=== PATIENT | male | born 1965 | race Caucasian/White ===

== ENCOUNTER → 2023-02-14 15:52 | Outpatient (BNVA) | payer OTHER, SELFPAY | PROVIDERS: PCP Internal Medicine; Visit Provider Physician Assistant Surgical ==

== ENCOUNTER 2023-03-15 13:41 | Outpatient (AMB) | payer OTHER, SELFPAY ==
--- NOTE | 2023-03-15 13:42 | A.OFFVIS_ITS ---
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 *Will bring Packet* Tree Surgeon Helper Required: Yes Tree Surgeon Helper Language: Italian Tree Surgeon Helper Name: [id number] Allergies No Known Allergies Allergy (Verified 03/15/23 14:12) Medication List - Last Reconciled 03/15/23 by JOANNE Talley atorvastatin 40 mg PO DAILY cholecalciferol (vitamin D3) mcg PO furosemide 20 mg PO DAILY glimepiride 4 mg PO BID insulin glargine 50 units subcut QPM magnesium 250 mg PO DAILY metformin 1,000 mg PO BID omeprazole 40 mg PO QAM pen needle, diabetic As directed ropinirole 0.5 mg PO QPM HPI HPI Comments History of Present Illness Details Pt [place] [facility] [place] [facility] [place]. He heard about our program from his PCP. His goal is to lose weight and achieve a healthy lifestyle as well as to improve, if not resolve, obesity related medical conditions, including dm, hld. He reports first being concerned about his weight 8-10 years ago, highest weight to date was 312. Current weight is 270.8 pounds with a BMI of 39.4. He has tried multiple methods of weight loss including fad diets without permanent results. He lives with his . 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 He wakes at:?530 am, and goes to bed at?930 pm. Dinner is at 5 pm. Breakfast: sandwich AM snack: fruit Lunch: sandwich PM snack: skip Dinner: meat, salad After dinner: bread Other snacks: ice cream, cake Liquids: 32 oz water, gatorade zero 2 bottles, no juice Alcohol/marijuana/tobacco intake: rare etoh, no cannabis, 1 pack per day x 40 years Exercise: none, treadmill in his home, GERD score: 22 LEV score: 0 ESS score: 22 QOL score: 78 [facility] Surgical History (Updated 03/15/23 @ 14:19 by Nissa Fair CMA) Hx of colonoscopy Review of Systems Const All systems reviewed & are unremarkable except as noted in HPI and below Physical Exam Vital Signs: Last Vital Signs Temp 97.2 F 03/15/23 13:57 Pulse 88 03/15/23 13:57 BP 136/72 03/15/23 13:57 Pulse Ox 92 03/15/23 13:57 Oxygen Delivery Method Room Air 03/15/23 13:57 BMI result Body Mass Index 39.4 Const General: cooperative, healthy appearing and no acute distress Orientation/consciousness: patient oriented x3 HEENT Head: Yes normal to inspection Ears: hearing grossly normal bilaterally General nose exam: Normal external nose present Face and sinus: Yes normal facial exam Eyes General: appearance normal, both eyes and all related structures Resp Effort & Inspection: normal respiratory effort Auscultation: clear to auscultation bilaterally Cardio Rate: regular rate Rhythm: regular rhythm Heart sounds: S1 normal heart sound present and S2 normal heart sound present GI Inspection: Yes normal to inspection, No distended and Yes obesity Palpation (GI): Soft to palpation, nontender and no guarding Auscultation: normal bowel sounds Skin General skin exam: no rashes or lesions noted Neuro General: patient oriented x3 Extrem General: Yes edema (1+ BLE edema) Psych Appearance: grossly normal Mental Status: mental status grossly normal Speech and movement: Normal speech and movement present Affect: normal affect Attitude: cooperative Assessment & Plan Assessment & Plan (1) Obesity (BMI 30-39.9): Code(s): E66.9 - Obesity, unspecified Plan: This is a?57 yo male who will start our SWL program to prepare for bariatric surgery.? Blood work, h pylori , CXR, ECG, Abd US and UGI have been ordered. He is being scheduled for RD and BH initial consultations. He will start SWL classes and watch the first three videos before his next appointment. ? Adequate sleep of 7-8 hours per night discussed, awakening at 530 am and going to bed at 930 pm ? Purchase body composition analyzer scale (Miriam white or Seferino recommended) and check weight weekly. The best time to do this is first thing in the morning after going to the bathroom. 1. Nutritional counseling: Be sure to careful read the number of scoops per shake Start with 3 Premier Protein shakes ([employer], [employer], [facility]), (1 scoop in 8 oz low fat unsweetened almond milk or water each) First shake at 630am-830am, Second shake at 1030am-1230pm 1 protein bar (Fit Crunch bars at [employer], [facility], or [employer]) at 2pm-4pm. Dinner at 5pm (10 forks of protein and 10 forks of salad/vegetables). Meal to include lean meat (beef, fish, pork, turkey, chicken), cooked vegetables or a salad with olive oil and/or fruits (berries, pears, apples, kiwi). Avoid salt, breads, potatoes, rice, pasta, desserts. Another shake with 1 scoop in 8 oz unsweetened almond milk at 7pm-9pm. Try to drink 64 oz of water daily and avoid soda and juices. ?2. Each shake would be drunk slowly, like coffee in a period of 2 hours. ?3. Cut each bar in 4 pieces and eat each piece in 30 min ?to make each bar last 2 hours. ?4. I emphasized the importance of measuring accurately the food portion and measure it carefully when serving the food on the plate ?5. The meal portions include 10 full-size forks of meat and 10 full-size forks of salad. You always eat the meat portion but you can replace up to half of the forks of salad/vegetables with rice, potatoes or pasta, or a fruit ?if you like. The less you do it the better weight loss will be. ?6. One full-size fork is what can be scooped on the fork without falling aside and not what can be bit with the fork. Use regular forks like those you find in a typical restaurant. ?7.? Please send me weight measurements as soon as possible and then once a week. Always include your diet and exercise plan. Alternatively come weekly at the office for weight checks and send me the measurements. ?8. Exercise counseling: Begin by watching a stretching for beginners video. Start slowly and begin to stretch your muscles. You should do this before and after each exercise session to prevent injury. You have a treadmill at your home but I have included other options in case you buy another piece of equipment. Start elliptical with a resistance of 2. Increase resistance by 1 every 3 min to your most comfortable resistance with a max resistance of 8. Reduce the resistance by 1 every 3 minutes back down to 2 and repeat cycles for 300 calories. Alternatively, start treadmill with a speed of 3.0 and incline of 0, increasing incline by 1 every 3 minutes to the highest comfortable level (max 6 for now) then decrease in the same fashion. Repeat process to a goal of 300 calories. Goal of 2000 calories burned or more weekly. You may also consider use of the stationary bike. The easiest would be to chose the fat-burn or i nterval training program on the machine and do this until you reach the 300 calorie goal. Alternatively, you can manually adjust the resistance in a similar fashion as mentioned above, (resistance of 2-8 with a goal speed of 12 mph). Tracking calories is essential. 9. Alternatively start walking outside daily, tracking calories with a goal of 300 calories per day, daily. You can download the joselito Monitor My Meds which can track your time, distance and calories while walking outside. You press start in the joselito when you start and then stop when you are finished. 10.? It is important to communicate by text with me weekly. 11. Please get labs, EKG and chest X-Ray within 1 week. 12. Discussed and answered all questions regarding?obtained consent to participate in the [place] [facility]?Registry. 13. Please follow the diet plan exactly, without any change. If you do not like something about the plan or you feel hungry, you need to communicate with me so I can help you revise the plan. You should not change the plan yourself. Text me at [phone] 14. Goal is to lose at least 12 pounds in the first month 15. Goal is to lose 10% of your weight before surgery, which is about 27 lbs. Ultimate weight goal: 243 lbs before surgery 16. Stop smoking immediately 17. If you want to do another overnight sleep study, let me know 18. Be sure to check your blood sugars twice per day when you start the meal plan Patient is morbidly obese and is not considered stable at this time.?I spent a total of 70 minutes reviewing/updating records, examining the patient and counseling the patient on weight management as detailed above. (2) WEST (obstructive sleep apnea): Code(s): G47.33 - Obstructive sleep apnea (adult) (pediatric) Plan: States underwent a sleep study and does have sleep apnea but did not tolerate CPAP and hasn't followed up. ESS 22. Discussed risks of untreated sleep apnea including but not limited to daytime fatigue, heart attack, stroke. Offered re- testing and pt declines at this time Orders: Orders Vitamin B12 and Folate Today E11.9 - Type 2 diabetes mellitus without co mplications, E66.9 - Obesity, unspecified, E78.00 - Pure hypercholesterolemia, unspecified Comprehensive Met. Panel Today E11.9 - Type 2 diabetes mellitus without complications, E66.9 - Obesity, unspecified, E78.00 - Pure hypercholesterolemia, unspecified C Reactive Protein Today E11.9 - Type 2 diabetes mellitus without complications, E66.9 - Obesity, unspecified, E78.00 - Pure hypercholesterolemia, unspecified Ferritin Today E11.9 - Type 2 diabetes mellitus without complications, E66.9 - Obesity, unspecified, E78.00 - Pure hypercholesterolemia, unspecified Hemoglobin A1c Today E11.9 - Type 2 diabetes mellitus without complications, E66.9 - Obesity, unspecified, E78.00 - Pure hypercholesterolemia, unspecified Insulin Today E11.9 - Type 2 diabetes mellitus without complications, E66.9 - Obesity, unspecified, E78.00 - Pure hypercholesterolemia, unspecified IRON PROFILE Today E11.9 - Type 2 diabetes mellitus without complications, E66.9 - Obesity, unspecified, E78.00 - Pure hypercholesterolemia, unspecified Lipid Panel Today E11.9 - Type 2 diabetes mellitus without complications, E66.9 - Obesity, unspecified, E78.00 - Pure hypercholesterolemia, unspecified PTHI Today E11.9 - Type 2 diabetes mellitus without complications, E66.9 - Obesity, unspecified, E78.00 - Pure hypercholesterolemia, unspecified TSH reflex Free T4 Today E11.9 - Type 2 diabetes mellitus without complications, E66.9 - Obesity, unspecified, E78.00 - Pure hypercholesterolemia, unspecified Vitamin A Today E11.9 - Type 2 diabetes mellitus without complications, E66.9 - Obesity, unspecified, E78.00 - Pure hypercholesterolemia, unspecified Vitamin B1 Today E11.9 - Type 2 diabetes mellitus without complications, E66.9 - Obesity, unspecified, E78.00 - Pure hypercholesterolemia, unspecified Vitamin D 25-OH Total Today E11.9 - Type 2 diabetes mellitus without complications, E66.9 - Obesity, unspecified, E78.00 - Pure hypercholesterolemia, unspecified Zinc Today E11.9 - Type 2 diabetes mellitus without complications, E66.9 - Obesity, unspecified, E78.00 - Pure hypercholesterolemia, unspecified ECG 12 lead EKG Today E11.9 - Type 2 diabetes mellitus without complications, E66.9 - Obesity, unspecified, E78.00 - Pure hypercholesterolemia, unspecified FL upper GI w air Today E11.9 - Type 2 diabetes mellitus without complications, E66.9 - Obesity, unspecified, E78.00 - Pure hypercholesterolemia, unspecified Complete Blood Count Auto Diff Today E11.9 - Type 2 diabetes mellitus without complications, E66.9 - Obesity, unspecified, E78.00 - Pure hypercholesterolemia, unspecified H Pylori Breath Test Today E11.9 - Type 2 diabetes mellitus without complications, E66.9 - Obesity, unspecified, E78.00 - Pure hypercholesterolemia, unspecified US abdomen comp w elastography Today E11.9 - Type 2 diabetes mellitus without complications, E66.9 - Obesity, unspecified, E78.00 - Pure hypercholesterolemia, unspecified XR chest 2V Today E11.9 - Type 2 diabetes mellitus without complications, E66.9 - Obesity, unspecified, E78.00 - Pure hypercholesterolemia, unspecified Referrals Behavioral Health Referral E11.9 - Type 2 diabetes mellitus without complications, E66.9 - Obesity, unspecified, E78.00 - Pure hypercholesterolemia, unspecified Nutrition/Dietitian Referral E11.9 - Type 2 diabetes mellitus without complications, E66.9 - Obesity, unspecified, E78.00 - Pure hypercholesterolemia, unspecified Coding Level of Care Code New Pt Level 5 (58121) Diagnoses Obesity (BMI 30-39.9) E66.9 WEST (obstructive sleep apnea) G47.33 Time Spent (min) 70
[2023-03-15 13:57] VITALS: BP 136/72; PULSE 88; TEMP 36.2; O2SAT 92; BMI 39.4
== END 2023-03-15 15:18 | disposition home or self-care (01) ==
PROVIDERS: PCP Internal Medicine; Visit Provider Physician Assistant Surgical
DX: E66.9 Obesity, unspecified (principal); Z68.39 Body mass index [BMI] 39.0-39.9, adult; G47.33 Obstructive sleep apnea (adult) (pediatric)
CPT/HCPCS: 99205

== ENCOUNTER → 2023-03-15 13:41 | Outpatient (BNVA) | payer OTHER, SELFPAY | PROVIDERS: PCP Internal Medicine; Visit Provider Physician Assistant Surgical ==

== ENCOUNTER 2023-04-27 15:53 | Outpatient (AMB) | payer OTHER, SELFPAY ==
--- NOTE | 2023-04-27 15:18 | A.OFFWM_ITS ---
Intake Intake Visit Reasons: VIDEO Intake Allergies No Known Allergies Allergy (Verified 03/15/23 14:12) PFS Surgical History (Updated 03/15/23 @ 14:19 by Nissa Fair CMA) Hx of colonoscopy Behavioral Health Assessment Weight Management Therapy Therapy Notes Details Pt reported that he is looking to have weight loss surgery to help improve his health and quality of life. He reported that he struggles with pain at work due to his weight. 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 Patient denied any mental health history or problems with drugs or alcohol. He is a cigarette smoker. Presenting Concerns Referral Source provider Reason for referral weight loss surgery evaluation Precipitating Event obesity Living Situation0 Current Living Situation Own At risk of losing current housing? No Satisfied with current living situation? Yes Comments Pt lives with his . he has two grown children. One who lives next [facility] and his son who lives in [place]. Food/Weight/Diet Expectations of change weight loss History/Relationship with food Pt stated that he likes all meat, peirogi, potatoes, rice, vegetables, pasta History/Relationship with weight Patient stated that he was thin when he was young. he has gained weight throughout the years especially when he tried to stopped smoking he went up to 312lbs. History/Relationship with dieting self diets, low carb Social History Family history and relationship Pt is and has two adult children. He was born and raised in [place] until he came here 35 years ago. He recently lost his father and before that his mother. He reported poor sleep since then. Parental/Familial intelligence clerk obligations none Developmental history and status no issues Social support family Cultural/Ethnic information Afghan [place] Legal Involvement and History Current or historical involvement with the legal system? no legal Education Highest grade completed high school Currently enrolled in educational program? No Interested in further educational program? No Employment Employment Status [employer] Wants help to find employment? No Financial Situation Describe current financial situation Occasional struggle Financial assistance? None Service Service? No Mental Health and Addiction Treatment Current/Past substance abuse? No Current/Past addictive behavior concerns? No Medical and Physical Health Summary Physical exam in the last year? Yes Pain Screening Current pain? No Medications Is the patient compliant with medications? Yes Does the patient have Vyas Guardian in place? Not applicable Does the patient use complimentary health approaches? No Assessment & Plan Assessment & Plan (1) Adjustment disorder, unspecified: Code(s): F43.20 - Adjustment disorder, unspecified (2) Obesity (BMI 30-39.9): Code(s): E66.9 - Obesity, unspecified (3) Diabetes: Code(s): E11.9 - Type 2 diabetes mellitus without complications Plan Patient is not fluent in Ghanaian however was able to understand most of this evaluation. He admitted to having some stress from recent loss of his parents who he was close to. Patient is worried about trying to quit smoking and doing the diet plan. He does not appear to have any serious mental health issues nor does he report any. He is cleared for surgery when ready and offered additional support services if needed. Telehealth Telehealth Location of provider rendering services: other Location of patient: address on file Patient Identification confirmed using: Name, : Yes Telehealth method: video Patient verbally consented to treatment: Yes Patient verbally consented to billing insurance company: Yes Patient informed of any privacy concerns related to visit: Yes Minutes spent on Phone/Video with Pt.: 45 Coding Level of Care Code Tele Psy Diag Janet ([id number]) Diagnoses Adjustment disorder, unspecified F43.20 Obesity (BMI 30-39.9) E66.9 Diabetes E11.9 Time Spent (min) 45
== END 2023-04-27 15:57 | disposition home or self-care (01) ==
LOC: HO.HBST 15:53
PROVIDERS: PCP Internal Medicine; Referring Provider Physician Assistant Surgical; Visit Provider Counselor Mental Health
DX: F43.20 Adjustment disorder, unspecified (principal); E66.9 Obesity, unspecified; Z68.39 Body mass index [BMI] 39.0-39.9, adult; E11.9 Type 2 diabetes mellitus without complications
CPT/HCPCS: 90791

== ENCOUNTER → 2023-04-27 15:53 | Outpatient (BNVA) | payer OTHER, SELFPAY | PROVIDERS: PCP Internal Medicine; Referring Provider Physician Assistant Surgical; Visit Provider Counselor Mental Health ==

== ENCOUNTER → 2023-05-04 15:50 | Outpatient (BNVA) | payer OTHER, SELFPAY | PROVIDERS: PCP Internal Medicine; Referring Provider Physician Assistant Surgical; Visit Provider Dietitian, Registered | DX: E66.9 Obesity, unspecified (principal); Z71.3 Dietary counseling and surveillance | CPT/HCPCS: 97802 ==

== ENCOUNTER 2023-05-09 14:51 | Outpatient (REF) | payer OTHER, SELFPAY ==
[2023-05-10 17:14] LABS: H Pylori Breath Test Positive (Negative)
== END 2023-05-09 14:52 | disposition home or self-care (01) ==
LOC: HO.LNP 14:51
PROVIDERS: PCP Internal Medicine; Visit Provider Physician Assistant Surgical
DX: E66.9 Obesity, unspecified (principal); E11.9 Type 2 diabetes mellitus without complications; E78.00 Pure hypercholesterolemia, unspecified
CPT/HCPCS: 83013; 99211

== ENCOUNTER 2023-05-09 14:51 | Outpatient (AMB) | payer OTHER, SELFPAY ==
--- NOTE | 2023-05-09 15:00 | MHC.OFFVISWM ---
Intake VS Expanded 05/09/23 15:17 BP 142/65 H Blood Pressure Location Rt brachial Blood Pressure Position Sitting Pulse 80 Pulse Source Pulse Oximeter Temp 97.7 F Temperature Source Temporal Artery Scan Pulse Oximetry 96 Oxygen Delivery Method Room Air Height 5 ft 9.5 in Weight 252 lb 6.4 oz BMI 36.7 Body Fat % 33.4 Body Fat Mass 84.2 Fat Free Mass 168.0 Visceral Fat Rating 20.0 Body Water % 47.9 Body Water Mass 120.8 Muscle Mass/Score 159.8 Basal Metabolic Rate/Score 2,286 Intake Visit Reasons: (OV) F/U SWL Quad Stayer Required: No Allergies No Known Allergies Allergy (Verified 05/09/23 15:07) Medication List - Last Reconciled 05/09/23 by JOANNE Talley atorvastatin 40 mg PO DAILY cholecalciferol (vitamin D3) mcg PO glimepiride 4 mg PO BID insulin glargine 40 units subcut QPM magnesium 250 mg PO DAILY metformin 1,000 mg PO BID omeprazole 40 mg PO QAM pen needle, diabetic As directed ropinirole 0.5 mg PO QPM HPI HPI Comments History of Present Illness Details The patient is a pleasant 57 year old male who returns to the clinic for pre-operative surgical weight loss management. They were last seen in the office on 03/15/2023, recorded weight at that time was 270.8 pounds, with a BMI of 39.4. Today's weight is 252.4 pounds and BMI is 36.7. There has been a weight loss of 18.4 pounds since initiating the surgical weight loss program on 03/15/23 with a total body weight loss of 6.7 %. Pre op work up completed as follows: SWL classes:? 0/8 appts: cleared 04/27/23 ? ? RD appts: needs f/u as language is barrier to computer based classes, will be given written handout [place]: [place] [facility] [place] 10.1 H. pylori: 05/09/23 CXR: not yet done EKG: not yet done ABD U/S: 05/24/23 UGI: 05/24/23 The patient reports he has had 1-2 episodes of dizziness with change in position but none in the last 3 weeks. . He states BS have been 110-170 and sometimes he does not take his insulin at night. The patient does have a body composition scale. They also have been communicating weekly. Current meal plan includes: 3 Premier Protein shakes ([employer], [employer], [facility]), (1 scoop in 8 oz low fat unsweetened almond milk or water each) First shake at 630am-830am, Second shake at 1030am-1230pm 1 protein bar (Fit Crunch bars at [employer], [facility], or [employer]) at 2pm-4pm. Dinner at 5pm (10 forks of protein and 10 forks of salad/vegetables). Another shake with 1 scoop in 8 oz unsweetened almond milk at 7pm-9pm. Drinking 16 oz water and 40 oz of poweraid zero Current exercise plan includes: nothing, has treadmill at home PFSH Surgical History Hx of colonoscopy Social History Alcohol intake: never Patient Tobacco Use Status: Current someday Tobacco user Tobacco use type: Cigarette Review of Systems Const All systems reviewed & are unremarkable except as noted in HPI and below Physical Exam Const General: healthy appearing and no acute distress Resp Effort & Inspection: normal respiratory effort Auscultation: clear to auscultation bilaterally Cardio Rate: regular rate Rhythm: regular rhythm GI Auscultation: normal bowel sounds Extrem General: Yes normal to inspection Assessment & Plan Assessment & Plan (1) Obesity (BMI 30-39.9): Code(s): E66.9 - Obesity, unspecified Plan: 2 Premier Protein shakes ([employer], [employer], [facility]), (1 scoop in 8 oz low fat unsweetened almond milk or water each) First shake at 630am-830am, Second shake at 1030am-1230pm 1 protein bar (Fit Crunch bars at [employer], [facility], or [employer]) at 2pm-4pm. Dinner at 5pm (10 forks of protein and 10 forks of salad/vegetables). Follow-up blood sugars in text me with the data. Likely will need decrease in medications. Coding Level of Care Code Est Pt Level 3 (19186) Diagnoses Obesity (BMI 30-39.9) E66.9
[2023-05-09 15:17] VITALS: BP 142/65; PULSE 80; TEMP 36.5; O2SAT 96; BMI 36.7
== END 2023-05-09 16:15 | disposition home or self-care (01) ==
PROVIDERS: PCP Internal Medicine; Visit Provider Physician Assistant Surgical
DX: E66.9 Obesity, unspecified (principal); Z68.36 Body mass index [BMI] 36.0-36.9, adult
CPT/HCPCS: 99213

== ENCOUNTER 2023-05-24 08:17 | Outpatient (REF) | payer OTHER, SELFPAY ==
--- NOTE | ~2023-05-24 | XR_ITS ---
EXAMINATION: XR CHEST CLINICAL INFORMATION: Obesity COMPARISON: None available. TECHNIQUE: 2 views of the chest were obtained. FINDINGS: No significant abnormality is noted involving the heart, lungs, mediastinum, bony thorax or soft tissues. XR/XR chest 2V IMPRESSION: Unremarkable examination.
--- NOTE | ~2023-05-24 | US_ITS ---
EXAMINATION: US COMPLETE ABDOMEN WITH LIVER ELASTOGRAPHY CLINICAL INFORMATION: Obesity COMPARISON: None available. TECHNIQUE: Real-time imaging of the abdominal viscera. Noninvasive ultrasound liver fibrosis assessment is performed using Bharathi ElastPQ point quantification shear wave elastography (2D-SWE) with a C5-2 MHz transducer. Multiple elastography samples are obtained. FINDINGS: PANCREAS: Not well visualized overlying bowel gas. ABDOMINAL AORTA: The middle and distal aortic segments are normal in caliber. Proximal abdominal aorta is not well visualized due to bowel gas. There is atherosclerotic disease. INFERIOR VENA CAVA: Visualized portions are normal. LIVER: Liver echotexture is increased. The liver is enlarged. The liver is normal in contour. No focal lesion or intrahepatic biliary duct dilatation. The right lobe measures 21 cm in length. The left lobe measures 8 cm in length. Portal flow is normal/hepatopedal Shear wave liver elastography median stiffness is 1.4 m/s (reference: normal median stiffness is 1.3 m/s or less). IQR/median stiffness to assess sampling precision is 0.2 (reference: good quality data set is IQR/median stiffness of 0.15 or less). GALLBLADDER: Normal. The gallbladder is physiologically distended without evidence of stones, sludge, polyps, wall thickening or pericholecystic fluid. COMMON BILE DUCT: Normal in caliber measuring 0.5 cm in diameter. RIGHT KIDNEY: Normal. No hydronephrosis. No renal calculi or focal parenchymal lesions. The kidney measures 13 cm in maximum dimension. LEFT KIDNEY: Normal. No hydronephrosis. No renal calculi or focal parenchymal lesions. The kidney measures 11.6 cm in maximum dimension. SPLEEN: Normal. The spleen measures 10 cm in maximum dimension. FREE FLUID: None. US/US abdomen comp w elastography IMPRESSION: 1. Impression: Enlarged echogenic liver. Differential would include fatty infiltration and hepatocellular disease. Limited visualization of the pancreas and upper abdominal aorta. 2. Liver elastography: Limited due to sampling error. Liver stiffness does not appear elevated. REFERENCE: Society of Radiologists in Ultrasound Liver Stiffness Thresholds (2020): LIVER STIFFNESS THRESHOLDS: *Liver Stiffness equal or less than 1.3 m/s: High probability of being normal. *Liver Stiffness less than 1.7 m/s: In the absence of other known clinical signs, rules out compensated advanced chronic liver disease. *Liver Stiffness 1.7-2.1 m/s: Suggestive of compensated advanced chronic liver disease but need further test for confirmation. *Liver Stiffness over 2.1 m/s: Rules in compensated advanced chronic liver disease. *Liver Stiffness over 2.4 m/s: Suggestive of clinically significant portal hypertension. QUALITY OF DATA SET: *IQR/Median value equal or less than 0.15 implies a quality data set. *IQR/Median value over 0.15 implies a poor quality data set. SIGNIFICANT CHANGE FROM PRIOR EXAM: Significant change if liver stiffness measurement is 10% or greater from prior exam. OTHER CONSIDERATIONS: The stage of liver fibrosis may be overestimated in the setting of acute hepatitis, liver inflammation, elevated liver function tests, hepatic vascular congestion, obstructive cholestasis, non-fasting state, and infiltrative diseases such as amyloidosis and lymphoma. In some patients with NAFLD, the liver stiffness thresholds for compensated advanced chronic liver disease may be lower. In causes other than viral hepatitis and NAFLD, liver stiffness thresholds are not well established.
--- NOTE | ~2023-05-24 | FL_ITS ---
EXAMINATION: XR FLUOROSCOPY UPPER GI WITH AIR CLINICAL INFORMATION: Preop evaluation prior to bariatric surgery COMPARISON: None TECHNIQUE: Fluoroscopic air contrast upper GI examination was performed utilizing standard techniques with thin and thick barium and effervescent granules. Numerous spot images were obtained. FINDINGS: Dual and single contrast images of the esophagus demonstrate normal caliber, contour, and mucosal pattern. No evidence of stricture, mass, or ulcerations identified. Primary Esophageal peristalsis was normal. Mild nonpropulsive tertiary contractions are noted in the distal esophagus. A small type I hiatal hernia is present. No significant gastroesophageal reflux was seen during the course of the examination and on reflux views. Dual contrast and single contrast images of the stomach demonstrated normal contour and mucosal pattern without evidence of mass, ulceration, or other abnormality. Contrast freely passed into the gastric antrum and duodenal bulb without delay. Single and air-contrast images of the duodenal bulb demonstrate no abnormality. The duodenal sweep has a normal appearance, course, and mucosal fold appearance. The imaged proximal jejunum has a normal fold pattern and caliber. FLUOROSCOPY TIME: 3.5 minutes Number of Spot Images: 12 Number of Cine: 8 DOSE AREA PRODUCT: 3590 uGy-m2 (microgray-meter squared) FL/FL upper GI w air IMPRESSION: 1. Mild esophageal dysmotility 2. Small type I hiatal hernia This procedure was performed by Brandon Bennett PA-C, and supervised by Dr. Sloan
== END 2023-05-24 08:18 | disposition home or self-care (01) ==
LOC: HO.US 08:17
PROVIDERS: PCP Internal Medicine; Visit Provider Physician Assistant Surgical
DX: E66.9 Obesity, unspecified (principal); E11.9 Type 2 diabetes mellitus without complications; E78.00 Pure hypercholesterolemia, unspecified
CPT/HCPCS: 71046; 74246; 76705; 76981

== ENCOUNTER → 2023-05-24 08:18 | Outpatient (BNV) | payer OTHER, SELFPAY | PROVIDERS: PCP Internal Medicine; Visit Provider Radiology Diagnostic Radiology | DX: Z01.818 Encounter for other preprocedural examination (principal); E66.9 Obesity, unspecified | CPT/HCPCS: 74246 ==

== ENCOUNTER 2023-06-20 15:16 | Outpatient (AMB) | payer OTHER, SELFPAY ==
--- NOTE | 2023-06-20 15:23 | MHC.OFFVISWM ---
Intake VS Expanded 06/20/23 15:41 BP 121/57 L Blood Pressure Location Rt brachial Blood Pressure Position Sitting Pulse 62 Pulse Source Pulse Oximeter Temp 97.7 F Temperature Source Tympanic Pulse Oximetry 95 Oxygen Delivery Method Room Air Height 5 ft 9.5 in Weight 238 lb 9.6 oz BMI 34.7 Body Fat % 32.2 Body Fat Mass 76.8 Fat Free Mass 161.8 Visceral Fat Rating 19.0 Body Water % 48.0 Body Water Mass 114.4 Muscle Mass/Score 153.8 Basal Metabolic Rate/Score 2,186 Intake Visit Reasons: (OV) F/U SWL Allergies No Known Allergies Allergy (Verified 06/20/23 15:52) Medication List - Last Reconciled 06/20/23 by JOANNE Talley atorvastatin 40 mg PO DAILY cholecalciferol (vitamin D3) mcg PO glimepiride 4 mg PO BID magnesium 250 mg PO DAILY metformin 1,000 mg PO BID pen needle, diabetic As directed ropinirole 0.5 mg PO QPM HPI HPI Comments History of Present Illness Details The patient is a pleasant 58 year old male who returns to the clinic for pre-operative surgical weight loss management. They were last seen in the office on 05/09/2023, recorded weight at that time was 252.4 pounds, with a BMI of 36.7. Today's weight is 238.6 pounds and BMI is 34.7. There has been a weight loss of 32.2 pounds since initiating the surgical weight loss program on 03/15/2023 with a total body weight loss of 11.8 %. Pre op work up completed as follows: SWL classes:? 0/8 appts: cleared 04/27/23 ? ? RD appts: needs f/u as language is barrier to computer based classes, will be given written handout Labs: 03/18/23 at [facility] [place] A1c: 10.1 H. pylori: 05/09/23-pos CXR: 05/24/23-nad EKG: [facility] [place] Wing Levy, 03/28/23-Left anterior fascicular block, Stress ECHO October 2022 ABD U/S: 05/24/23-fatty liver UGI: 05/24/23- HH The patient reports he has stopped taking his insulin and his BS have been 120-130. H is smoking about 2-3 cigarettes per day. The patient does have a body composition scale. They also have been communicating weekly. Current meal plan includes: 2 Premier Protein shakes ([employer], [employer], [employer]), (1 scoop in 8 oz low fat unsweetened almond milk or water each) First shake at 630am-830am, Second shake at 1030am-1230pm 1 protein bar (Fit Crunch bars at [employer], [employer], or [employer]) at 2pm-4pm. Dinner at 5pm (10 forks of protein and 10 forks of salad/vegetables). Drinking 16 oz water and 40 oz of poweraid zero Current exercise plan includes: nothing, has treadmill at home, not willing to use, complains of left knee pain and he states he is considering buying a stationary bike. [facility] Surgical History Hx of colonoscopy Social History Alcohol intake: never Patient Tobacco Use Status: Current someday Tobacco user Tobacco use type: Cigarette Review of Systems Const All systems reviewed & are unremarkable except as noted in HPI and below Physical Exam Const General: healthy appearing and no acute distress Resp Effort & Inspection: normal respiratory effort Auscultation: clear to auscultation bilaterally Cardio Rate: regular rate Rhythm: abnormal rhythm with ectopic beats GI Auscultation: normal bowel sounds Extrem General: Yes normal to inspection Assessment & Plan Assessment & Plan (1) Obesity (BMI 30-39.9): Code(s): E66.9 - Obesity, unspecified Plan: Discussed the need to exercise and quit smoking. He states that he is going to consider buying a stationary bike. He will additionally need follow-up with Josselyn, our registered dietitian. He did have a repeat H pylori today after treatment. (2) Arrhythmia: Code(s): I49.9 - Cardiac arrhythmia, unspecified Plan: Patient states that he has a history of an arrhythmia dating back 30 years when he was living in [place]. In he additionally states that he had an EKG which has been faxed to us in March 2023. This showed a left fascicular block, unknown whether this is new. He additionally states that he had a stress test, I was able to call [facility] and they stated he had a stress echo performed in October 2022. I have requested the records. Given the irregular heartbeat on today's exam, I discussed referral to Cardiology. He was hesitant to do so, stating that he has had too many doctors appointments and he felt as though it may just go away. I discussed that he will need to be seen by Cardiology prior to any surgical intervention. He states that he will think about this. I asked him if he would like me to call his primary care physician to discuss it and he declined. Coding Level of Care Code Est Pt Level 4 (89175) Diagnoses Obesity (BMI 30-39.9) E66.9 Arrhythmia I49.9 Time Spent (min) 40
[2023-06-20 15:41] VITALS: BP 121/57; PULSE 62; TEMP 36.5; O2SAT 95; BMI 34.7
== END 2023-06-20 16:27 | disposition home or self-care (01) ==
PROVIDERS: PCP Internal Medicine; Visit Provider Physician Assistant Surgical
DX: E66.9 Obesity, unspecified (principal); Z68.34 Body mass index [BMI] 34.0-34.9, adult; I49.9 Cardiac arrhythmia, unspecified
CPT/HCPCS: 99214

== ENCOUNTER 2023-06-20 15:16 | Outpatient (REF) | payer OTHER, SELFPAY ==
[2023-06-22 15:29] LABS: H Pylori Breath Test Negative (Negative)
== END 2023-06-20 15:17 | disposition home or self-care (01) ==
LOC: HO.LNP 15:16
PROVIDERS: PCP Internal Medicine; Visit Provider Physician Assistant Surgical
DX: Z01.818 Encounter for other preprocedural examination (principal)
CPT/HCPCS: 83013; 99211

== ENCOUNTER 2023-08-15 16:22 | Outpatient (AMB) | payer OTHER, SELFPAY ==
--- NOTE | 2023-08-15 15:13 | A.OFFVIS_ITS ---
Intake VS Expanded 08/15/23 16:17 Height 5 ft 9.5 in Weight 228 lb BMI 33.2 Intake Visit Reasons: (TV) F/U SWL Cadd Drafter Required: No Allergies No Known Allergies Allergy (Verified 06/20/23 15:52) Medication List - Last Reconciled 08/15/23 by JOANNE Talley atorvastatin 40 mg PO DAILY cholecalciferol (vitamin D3) mcg PO glimepiride 4 mg PO BID magnesium 250 mg PO DAILY metformin 1,000 mg PO BID pen needle, diabetic As directed ropinirole 0.5 mg PO QPM HPI HPI Comments History of Present Illness Details The patient is a pleasant 58 year old male who returns to the clinic for pre-operative surgical weight loss management. They were last seen in the office on 06/20/2023, recorded weight at that time was 238.6 pounds, with a BMI of 34.7. Today's weight is 228 pounds and BMI is 33.2. There has been a weight loss of 42.8 pounds since initiating the surgical weight loss program on 03/15/2023 with a total body weight loss of 15.8 %. Pre op work up completed as follows: SWL classes:? 0 BH appts: cleared 04/27/23 ? ? RD appts: needs f/u as language is barrier to computer based classes, will be given written handout Labs: 03/18/23 at [facility] [place] A1c: 10.1 H. pylori: 05/09/23-pos, 06/20/23-neg CXR: 05/24/23-nad EKG: [facility] [place] Wing Levy, 03/28/23-Left anterior fascicular block, Stress ECHO October 2022 ABD U/S: 05/24/23-fatty liver UGI: 05/24/23-sm HH Pt got covid, recovering. Still smoking, reports weight is 228, hasn't exercised The patient reports he has stopped taking his insulin and his BS have been 110- 120. The patient does have a body composition scale. They also have not been communicating weekly. Current meal plan includes: 2 Premier Protein shakes ([employer], [employer], [employer]), (1 scoop in 8 oz low fat unsweetened almond milk or water each) First shake at 630am-830am, Second shake at 1030am-1230pm 1 protein bar (Fit Crunch bars at [employer] , [facility], or [employer]) at 2pm-4pm. Dinner at 5pm (10 forks of protein and 10 forks of salad/vegetables). Drinking 16 oz water and 40 oz of poweraid zero Current exercise plan includes: nothing, PFSH Surgical History Hx of colonoscopy Social History Alcohol intake: never Patient Tobacco Use Status: Current someday Tobacco user Tobacco use type: Cigarette Assessment & Plan Assessment & Plan (1) Obesity (BMI 30-39.9): Code(s): E66.9 - Obesity, unspecified Plan: Change meal plan slightly: 2 Premier Protein shakes ([employer], [employer], [employer]), (1 scoop in 8 oz low fat unsweetened almond milk or water each) First shake at 630am-830am, Second shake at 1030am-1230pm 1 protein bar (Fit Crunch bars at [employer], [facility], or [employer]) at 2pm-4pm. Dinner at 5pm (8 forks of protein and 8 forks of salad/vegetables). Strongly encouraged to quit smoking. We will discuss with Dr. Beckman if the patient is unwilling to quit smoking, would he still be appropriate for surgery. Additionally, strongly encouraged to begin exercise. He talked about getting a stationary bike but then needed to spend money on his car. Patient seemed reluctant to begin an exercise program. Despite this, he has lost 42 lb by following the meal plan exactly. Needs to be seen again by Josselyn. Telehealth Telehealth Location of provider rendering services: practice address Location of patient: address on file Patient Identification confirmed using: Name, : Yes Telehealth method: voice only Patient verbally consented to treatment: Yes Patient verbally consented to billing insurance company: Yes Patient informed of any privacy concerns related to visit: Yes Minutes spent on Phone/Video with Pt.: 15 Coding Level of Care Code Tele Est Pt Level 3 (55884) Diagnoses Obesity (BMI 30-39.9) E66.9 Time Spent (min) 20
[2023-08-15 16:17] VITALS: BMI 33.2
== END 2023-08-15 16:57 | disposition home or self-care (01) ==
LOC: HO.HBS 16:22
PROVIDERS: PCP Internal Medicine; Visit Provider Physician Assistant Surgical
DX: E66.9 Obesity, unspecified (principal)
CPT/HCPCS: 99213

== ENCOUNTER → 2023-08-15 16:22 | Outpatient (BNVA) | payer OTHER, SELFPAY | PROVIDERS: PCP Internal Medicine; Visit Provider Physician Assistant Surgical ==

== ENCOUNTER 2023-09-12 14:15 | Outpatient (AMB) | payer OTHER, SELFPAY ==
--- NOTE | 2023-09-12 14:22 | A.OFFVIS_ITS ---
Intake VS Expanded 09/12/23 14:31 BP 118/62 Blood Pressure Location Rt brachial Blood Pressure Position Sitting Pulse 96 Pulse Source Pulse Oximeter Temp 97.1 F Temperature Source Temporal Artery Scan Pulse Oximetry 99 Oxygen Delivery Method Room Air Height 5 ft 9.5 in Weight 226 lb 12.8 oz BMI 33.0 Body Fat % 28.6 Body Fat Mass 64.8 Fat Free Mass 161.8 Visceral Fat Rating 16.0 Body Water % 51.4 Body Water Mass 116.4 Muscle Mass/Score 153.8 Basal Metabolic Rate/Score 2,166 Intake Visit Reasons: (OV) F/U SWL Enterprise Architect Manager Required: No Allergies No Known Allergies Allergy (Verified 09/12/23 14:24) Medication List - Last Reconciled 09/12/23 by JOANNE Talley atorvastatin 40 mg PO DAILY cholecalciferol (vitamin D3) mcg PO glimepiride 4 mg PO BID magnesium 250 mg PO DAILY metformin 1,000 mg PO BID pen needle, diabetic As directed ropinirole 0.5 mg PO QPM HPI HPI Comments History of Present Illness Details The patient is a pleasant 58 year old male who returns to the clinic for pre-operative surgical weight loss management. They were last seen in the office on 08/15/23, recorded weight at that time was 2228 pounds, with a BMI of 33.2. Today's weight is 226.8 pounds and BMI is 33. There has been a weight loss of 44 pounds since initiating the surgical weight loss program on 03/15/2023 with a total body weight loss of 16.2 %. Pre op work up completed as follows: SWL classes:? 0/8 appts: cleared 04/27/23 ? ? RD appts: needs f/u as language is barrier to computer based classes, will be given written handout Labs: 03/18/23 at [facility] [place] A1c: 10.1 H. pylori: 05/09/23-pos, 06/20/23-neg CXR: 05/24/23-nad EKG: [facility] Wing Levy, 03/28/23-Left anterior fascicular block, Stress ECHO October 2022 ABD U/S: 05/24/23-fatty liver UGI: 05/24/23-sm HH Still smoking, 2-3 per day down from a pack per day. The patient reports he has stopped taking his insulin and his BS have been 110-120. The patient does have a body composition scale. They also have not been communicating weekly. He states that he no longer wants to pursue a surgical option. He additionally states that he may be going back to [place] to visit his 's family. He will continue to follow the recommended meal plan. Current meal plan includes: 2 Premier Protein shakes ([employer], [employer], [employer]), (1 scoop in 8 oz low fat unsweete aminata almond milk or water each) First shake at 630am-830am, Second shake at 1030am-1230pm 1 protein bar (Fit Crunch bars at [employer] , [facility], or [employer]) at 2pm-4pm. Only eating 2-3 days per week Dinner at 5pm (8 forks of protein and 8 forks of salad/vegetables). Drinking 16 oz water and 40 oz of poweraid zero, 4 cups coffee cream and splenda Current exercise plan includes: nothing, PFSH Surgical History Hx of colonoscopy Social History Alcohol intake: never Patient Tobacco Use Status: Current someday Tobacco user Tobacco use type: Cigarette Physical Exam Vital Signs: Last Vital Signs Temp 97.1 F 09/12/23 14:31 Pulse 96 09/12/23 14:31 BP 118/62 09/12/23 14:31 Pulse Ox 99 09/12/23 14:31 Oxygen Delivery Method Room Air 09/12/23 14:31 BMI result Body Mass Index 33.0 Const General: healthy appearing and no acute distress Resp Effort & Inspection: normal respiratory effort Auscultation: clear to auscultation bilaterally Cardio Rate: regular rate Rhythm: regular rhythm GI Auscultation: normal bowel sounds Extrem General: Yes normal to inspection Assessment & Plan Assessment & Plan (1) Obesity (BMI 30-39.9): Code(s): E66.9 - Obesity, unspecified Plan: Patient states that he does not wish to continue to pursue surgery at this time. He may be going to [place] to visit his 's elderly family. He will continue the meal plan and call when he returns from [place] for a follow-up appointment. He he was encouraged to begin a walking program. [place]/2 mi loop. I encouraged him to do this 2-3 times per week. I also encouraged him to quit smoking. Coding Level of Care Code Est Pt Level 3 (96118) Diagnoses Obesity (BMI 30-39.9) E66.9
[2023-09-12 14:31] VITALS: BP 118/62; PULSE 96; TEMP 36.2; O2SAT 99; BMI 33.0
== END 2023-09-12 15:26 | disposition home or self-care (01) ==
PROVIDERS: PCP Internal Medicine; Visit Provider Physician Assistant Surgical
DX: E66.9 Obesity, unspecified (principal); Z68.33 Body mass index [BMI] 33.0-33.9, adult
CPT/HCPCS: 99213

== ENCOUNTER → 2023-09-12 14:15 | Outpatient (BNVA) | payer OTHER, SELFPAY | PROVIDERS: PCP Internal Medicine; Visit Provider Physician Assistant Surgical ==